=== PATIENT | female | born 1940 | race Caucasian/White ===

== ENCOUNTER 2020-01-17 14:39 | Inpatient (IN) ==
[2020-01-17] MEDS ORDERED: ASPIRIN PO ONE (14:52)
[2020-01-17] MEDS ORDERED: DUONEB (A & A) INH ONE (15:07)
[2020-01-17 15:32] LABS: BASO# 0.12 X1000 (0.0-0.2); BASO% 0.9 % (0.0-0.8); EOS# 0.14 X1000 (0.0-0.7); HEMATOCRIT 42.5 % (37.0-47.0); HEMOGLOBIN 13.9 g/dL (12.0-16.0); IMM GRAN# 0.05 X1000 (0.0-0.04); IMM GRAN% 0.4 % (0.0-0.5); MCH 33.2 PG (27-31); MCHC 32.7 g/dL (33-37); MCV 101.4 FL (81-99); MONO# 2.01 X1000 (0.11-0.59); MONO% 14.5 % (1.7-9.3); MPV 9.9 FL (7.4-10.4); NEUT# 9.71 X1000 (1.4-6.5); NEUT% 70.2 % (42.2-75.2); PLT 317 X1000 (130-400); RBC 4.19 XMIL (4.2-5.4); RDW 12.7 % (11.5-14.5); WBC 13.83 X1000 (4.8-10.8)
[2020-01-17 15:43] LABS: INR 0.83; PROTIME 11.8 Seconds (11.0-16.0)
[2020-01-17 15:44] LABS: PTT 28.7 Seconds (22.3-41.8)
[2020-01-17 15:47] LABS: URINE SOURCE CLEAN CATCH
[2020-01-17 15:48] LABS: AGAP 12; ALBUMIN 4.3 g/dL (3.5-5.0); ALKALINE PHOSPHATASE 62 U/L (32-104); BUN 19 mg/dL (8-22); CALCIUM 9.2 mg/dL (8.8-10.2); CHLORIDE 91 mmol/L (98-107); COSMO 267; CREATININE 0.8 mg/dL (0.5-0.9); ESTIMATED GFR > 60; GLUCOSE 106 mg/dL (70-104); GOT 23 U/L (10-30); GPT 13 U/L (10-36); POTASSIUM 4.9 mmol/L (3.5-5.1); SODIUM 132 mmol/L (136-145); TCO2 29 mmol/L (25-35); TOTAL PROTEIN 7.5 g/dL (6.3-8.3)
[2020-01-17 15:51] LABS: BILIRUBIN URINE NEGATIVE (NEGATIVE); BLOOD URINE SMALL (NEGATIVE); COLOR YELLOW; GLUCOSE URINE NEGATIVE (NEGATIVE); KETONE URINE NEGATIVE (NEGATIVE); LEUKOCYTES URINE NEGATIVE (NEGATIVE); NITRITE URINE NEGATIVE (NEGATIVE); PH URINE 6.5; PROTEIN URINE TRACE mg/dL (NEGATIVE); SP GRAVITY URINE 1.018; TURBIDITY URINE CLEAR (CLEAR); UR EPITHELIAL CELLS <10 /HPF (<10); URINE BACTERIA NEGATIVE /HPF; URINE WBC <10 /HPF (<10); UROBILINOGEN URINE NORMAL (NORMAL)
[2020-01-17 15:56] LABS: CK PROFILE 215 U/L (24-173)
--- NOTE | 2020-01-17 16:04 | Diag Imaging Result Doc PS360 ---
EXAM: CHEST-2 VIEWS HISTORY: SOB TECHNIQUE: PA and Lateral chest x-ray COMPARISON: 12/05/2017 FINDINGS: The cardiomediastinal silhouette is within normal limits. There is mild vascular congestion. Interstitial markings are mildly prominent. There is stable mild blunting of the left lateral costophrenic angles. IMPRESSION: Mild vascular congestion and interstitial prominence compared with prior study. Electronically signed by Sabina Oakes 01/17/2020 4:02 PM
[2020-01-17 16:19] LABS: CK INDEX 3.1 (0.0-2.5); CK-MB 6.75 ng/mL (0.0-5.0)
[2020-01-17] MEDS ORDERED: LASIX IV ONE (19:21)
--- NOTE | 2020-01-17 19:23 | PROVIDER DOCUMENTATION ---
This chart was entered by Viviana Jaime Scribe, acting as scribe for Jayce Dale MD. HPI-Respiratory General - General Source: patient, family - History of Present Illness-Resp Quality of Pain: reports: none Severity in ED: reports: moderate Onset/Duration: reports: 3 days ago Timing: reports: still present, constant, getting worse Context: reports: recent URI Cough Quality/Degree: reports: moderate, productive cough Episode Frequency: frequent episodes Current Respiratory Medication Therapy: Initiated see nurses note Modifying Factors: improves with: albuterol nebulizer, oxygen, sitting upright. worse with: exertion, coughing Associated Symptoms: reports: cough, shortness of breath, wheezing. denies: chest pain/soreness, headache Similar Symptoms Previously?: Yes Recently seen or treated by another doctor?: Yes (md on wednesday) <Jayce Dale - Last Filed: 01/17/20 19:22> <Jake Coreas - Last Filed: 01/17/20 21:50> - General Chief Complaint: Shortness of Breath Stated Complaint: FLU SX Time Seen by Provider: 01/17/20 14:59 Allergies/Adverse Reactions: Patient Allergies Allergy/AdvReac Type Severity Reaction Status Date / Time No Known Allergies Allergy Verified 10/07/14 10:43 Home Medications: Home Medication List Medication Instructions Recorded Confirmed Last Taken Type Calcium 1,200 mg PO DAILY 10/07/14 01/17/20 10/23/16 07:00 History 1200 MG Celecoxib [Celebrex] 200 mg PO BID 10/07/14 01/17/20 10/23/16 07:00 History 200 MG Cholecalciferol (Vitamin D3) 1,000 unit PO DAILY 10/07/14 01/17/20 10/23/16 07:00 History [Vitamin D] 1000 UNIT Folic Acid 1 mg PO DAILY 10/07/14 01/17/20 10/23/16 07:00 History 1 MG Methotrexate 40 mg PO DIRECTED 10/07/14 01/17/20 10/20/16 07:00 History YES Amoxicillin/Pot Clavulanate 875 mg PO BID 01/17/20 01/17/20 01/17/20 History [Augmentin] Duloxetine HCl 30 mg PO BID 01/17/20 01/17/20 Unknown History Fluticasone 50 Mcg Nasal [place] 1 spray ORDERED DAILY 01/17/20 01/17/20 Unknown History [Flonase] Primidone 50 mg PO DAILY 01/17/20 01/17/20 Unknown History Propranolol [Inderal] 10 mg PO BID 01/17/20 01/17/20 Unknown History - History of Present Illness-Resp Nature of Presenting Problem: 79 yowf presents to the ed with c/o sob, wheezing, productive cough and low O2 sat. pt has seen MD and recently dx with URI. pt sts sx have worsened since onset 3 days prior. pt is nontoxic in appearance (Jayce Dale) Review of Systems - Adult - REVIEW OF SYSTEMS - ADULT Constitutional: denies: chills, fever Eyes: reports: no symptoms reported Ears, Nose, Mouth & Throat: reports: no symptoms reported Cardiovascular: denies: chest pain, palpitations Respiratory: reports: see HPI, cough, shortness of breath, wheezing Gastrointestinal: denies: abdominal pain, diarrhea, nausea, vomiting Genitourinary: reports: no symptoms reported Musculoskeletal: denies: back pain, neck pain Integumentary: reports: no symptoms reported Neurological: reports: no symptoms reported Psychiatric: reports: no symptoms reported Endocrine: reports: no symptoms reported Hematologic/Lymphatic: reports: no symptoms reported Allergic/Immunologic: reports: no symptoms reported All Other Systems: Reviewed and Negative <Jayce Dale - Last Filed: 01/17/20 19:22> Past History - Adult - PAST MEDICAL HISTORY-ADULT Review of Records: reports: Old Records Reviewed, Nursing Assessment Review, Medications Reviewed, Social history reviewed & non-contributory. Major Childhood Illnesses: reports: denies history Cardiovascular: reports: denies history Respiratory: reports: COPD Gastrointestinal: reports: GERD Obstetrical/Gynecological: reports: denies history Genitourinary: reports: denies history Musculoskeletal: reports: arthritis, chronic pain Neurological: reports: denies history Endocrine/Immune: reports: denies history Other Conditions: reports: denies history - IMMUNIZATION STATUS Childhood Immunizations: See Nurse Assessment Flu Vaccine: See Nurse Assessment - FAMILY HISTORY Family History: reviewed, not pertinent <Jayce Dale - Last Filed: 01/17/20 19:22> Physical Exam-General - PHYSICAL EXAM-ADULT Initial Vital Signs Reviewed: Yes - CONSTITUTIONAL General Appearance: alert - EYES Eyes: PERRL/EOMI, pink conjunctivae - HEAD, EARS, NOSE, MOUTH & THROAT HENMT: moist mucous membranes, normal ENT inspection - NECK Neck: non-tender, full range of motion, supple, normal inspection - RESPIRATORY Respiratory: chest non-tender, respiratory distress, wheezing - CARDIOVASCULAR Cardiovascular: normal peripheral pulses, regular rate, rhythm - CHEST (BREASTS) Chest/Breast: deferred - GASTROINTESTINAL (ABDOMEN) Abdominal Exam: normal bowel sounds, non tender, soft - GENITOURINARY Female Genitalia/Pelvic Exam: deferred Rectal Exam: deferred Hemoccult Exam: deferred (=-) - LYMPHATIC Lymphatic: no adenopathy - MUSCULOSKELETAL Back Exam: normal inspection, no CVA tenderness, no vertebral tenderness Extremity: normal range of motion, non-tender, normal inspection - SKIN Integumentary: normal color, normal turgor, warm/dry - NEUROLOGIC Neurologic: grossly normal - PSYCHIATRIC Psych/Mental Status: normal mood/affect, normal thought content, normal thought process, oriented x 3 <Jayce Dale - Last Filed: 01/17/20 19:22> - HEART Score HEART Score: History: Slightly Suspicious HEART Score: ECG: Non-Specific Repolarization Disturbance/LBBB/PM HEART Score: Age: > or = 65 Years HEART Score: Risk Factors for Atherosclerotic Disease: 1 or 2 Risk Factors HEART Score: Troponin: < or = Normal Limit Total HEART Score:: 4 <Jake Coreas - Last Filed: 01/17/20 21:50> Progress - PLAN OF CARE/RESULTS Result Diagrams: 01/17/20 15:14 01/17/20 15:14 - XRAY 1 XRAY: Bilateral XRAY Study: Chest Impression: See EMR Report (EXAM: CHEST-2 VIEWS HISTORY: SOB TECHNIQUE: PA and Lateral chest x-ray COMPARISON: 12/05/2017 FINDINGS: The cardi omediastinal silhouette is within normal limits. There is mild vascular congestion. Interstitial markings are mildly prominent. There is stable mild blunting of the left lateral costophrenic angles. IMPRESSION: Mild vascular congestion and interstitial prominence compared with prior study. Electronically signed by Sabina Oakes 01/17/2020 4:02 PM 01/17/20 1602 Interpreting Physician: Sabina Oakes MD Dictated Date/Time: 01/17/20 1600 cc: Jayce Dale MD; Dio Dueñas MD) - CHANGE OF SHIFT REPORT (ED Provider) 1 Report Given and Care Transferred to:: Dr Coreas Time of Transfer: 19:00 Items Pending: CT/MRI Results <Jayce Dale - Last Filed: 01/17/20 19:22> - PLAN OF CARE/RESULTS Result Diagrams: 01/17/20 15:14 01/17/20 15:14 - REASSESSMENT Reassessment #1 Time Reassessed: 21:16 Status: unchanged (PUL ANGIOGRAM : NO PTE, POSSIBLE LLL INFILTRATE. PT WILL DESAT BELOW 90% WHEN AMBULATES TO BR W/O 02, BNP SL ELEV. MILD LEUKOCYTOSIS.) - CONSULTS/PCP/HOSPITALIST Notification #1 *Consult/PCP/Hospitalist*: DR VILLEGAS Time Discussed: 21:50 Consult Disposition: Admit <Jake Coreas - Last Filed: 01/17/20 21:50> - PLAN OF CARE/RESULTS Progress/Plan/Lab Results: Vital Signs - 8 hr 01/17/20 14:45 01/17/20 15:35 01/17/20 18:17 Temperature 98.0 F Pulse Rate 80 86 90 Respiratory Rate 20 18 20 Blood Pressure 192/68 165/74 O2 Sat by Pulse Oximetry 90 L 98 97 01/17/20 19:42 01/17/20 19:43 Temperature Pulse Rate 90 84 Respiratory Rate 19 22 Blood Pressure 199/84 199/84 O2 Sat by Pulse Oximetry 99 100 Laboratory Results - last 24 hr 01/17/20 01/17/20 01/17/20 15:14 15:14 15:14 WBC RBC Hgb Hct MCV MCH MCHC RDW Std Deviation Plt Count MPV Immature Gran % (Auto) Neut % (Auto) Lymph % (Auto) Ogle % (Auto) Eos % (Auto) Baso % (Auto) Immature Gran # (Auto) Neut # (Auto) Lymph # (Auto) Ogle # (Auto) Eos # (Auto) Baso # (Auto) PT INR PTT (Actin FS) D-Dimer, Quantitative Sodium 132 L Potassium 4.9 Chloride 91 L Carbon Dioxide 29 Anion Gap 12 BUN 19 Creatinine 0.8 Estimated GFR/1.73 m2 > 60 BUN/Creatinine Ratio 24 Glucose 106 H Calculated Osmolality 267 Calcium 9.2 Total Bilirubin 0.20 AST 23 ALT 13 Alkaline Phosphatase 62 Creatine Kinase 215 H Creatine Kinase Index 3.1 H CK-MB (CK-2) 6.75 H Troponin T High Sens Xyn-[id number]-Bdvilgxyopq Pept 1152 H Total Protein 7.5 Albumin 4.3 Globulin 3.0 Albumin/Globulin Ratio 1.0 Plasma Lactate 1.0 Urine Source Urine Color Urine Turbidity Urine pH Ur Specific [place] Urine Protein Ur Glucose (Stick) Ur Ketones (Stick) Urine Blood Urine Nitrite Urine Bilirubin Urobilinogen Dipstick Urine Leukocytes Urine WBC (Auto) Urine RBC (Auto) U Epithel Cells (Auto) Urine Bacteria (Auto) 01/17/20 01/17/20 01/17/20 15:14 15:14 15:14 WBC 13.83 H RBC 4.19 L Hgb 13.9 Hct 42.5 MCV 101.4 H MCH 33.2 H MCHC 32.7 L RDW Std Deviation 12.7 Plt Count 317 MPV 9.9 Immature Gran % (Auto) 0.4 Neut % (Auto) 70.2 Lymph % (Auto) 13.0 L Ogle % (Auto) 14.5 H Eos % (Auto) 1.0 Baso % (Auto) 0.9 H Immature Gran # (Auto) 0.05 H Neut # (Auto) 9.71 H Lymph # (Auto) 1.80 Ogle # (Auto) 2.01 H Eos # (Auto) 0.14 Baso # (Auto) 0.12 PT 11.8 INR 0.83 PTT (Actin FS) 28.7 D-Dimer, Quantitative Sodium Potassium Chloride Carbon Dioxide Anion Gap BUN Creatinine Estimated GFR/1.73 m2 BUN/Creatinine Ratio Glucose Calculated Osmolality Calcium Total Bilirubin AST ALT Alkaline Phosphatase Creatine Kinase Creatine Kinase Index CK-MB (CK-2) Troponin T High Sens 16 Mwu-R-Yqzsrweqhus Pept Total Protein Albumin Globulin Albumin/Globulin Ratio Plasma Lactate Urine Source Urine Color Urine Turbidity Urine pH Ur Specific [place] Urine Protein Ur Glucose (Stick) Ur Ketones (Stick) Urine Blood Urine Nitrite Urine Bilirubin Urobilinogen Dipstick Urine Leukocytes Urine WBC (Auto) Urine RBC (Auto) U Epithel Cells (Auto) Urine Bacteria (Auto) 01/17/20 01/17/20 01/17/20 15:14 15:37 18:37 WBC RBC Hgb Hct MCV MCH MCHC RDW Std Deviation Plt Count MPV Immature Gran % (Auto) Neut % (Auto) Lymph % (Auto) Ogle % (Auto) Eos % (Auto) Baso % (Auto) Immature Gran # (Auto) Neut # (Auto) Lymph # (Auto) Ogle # (Auto) Eos # (Auto) Baso # (Auto) PT INR PTT (Actin FS) D-Dimer, Quantitative 1.15 H Sodium Potassium Chloride Carbon Dioxide Anion Gap BUN Creatinine Estimated GFR/1.73 m2 BUN/Creatinine Ratio Glucose Calculated Osmolality Calcium Total Bilirubin AST ALT Alkaline Phosphatase Creatine Kinase Creatine Kinase Index CK-MB (CK-2) Troponin T High Sens Usv-[id number]-Phgoacdmdcx Pept Total Protein Albumin Globulin Albumin/Globulin Ratio Plasma Lactate 1.1 Urine Source CLEAN CATCH Urine Color YELLOW Urine Turbidity CLEAR Urine pH 6.5 Ur Specific [place] 1.018 Urine Protein TRACE A Ur Glucose (Stick) NEGATIVE Ur Ketones (Stick) NEGATIVE Urine Blood SMALL A Urine Nitrite NEGATIVE Urine Bilirubin NEGATIVE Urobilinogen Dipstick NORMAL Urine Leukocytes NEGATIVE Urine WBC (Auto) <10 Urine RBC (Auto) 10-20 A U Epithel Cells (Auto) <10 Urine Bacteria (Auto) NEGATIVE Orders Category Date Time Status Cardiac Monitoring DIRECTED Care 01/17/20 14:53 Active NEWS Score 2-4:Order NEWS Lactate Series NOW Care 01/17/20 14:51 Active Oxygen Therapy- ED Nursing DIRECTED Care 01/17/20 14:53 Active Saline Loc NOW Care 01/17/20 14:53 Active CHEST-2 VIEWS [RAD] Stat Exams 01/17/20 14:[address] ANGIOGRM PULMONARY ARTERIES [CT] Stat Exams 01/17/20 18:32 Completed CBC WITH ELECTRONIC DIFF [HEME] Stat Lab 01/17/20 15:14 Completed CK PROFILE [SP CHEM] Stat Lab 01/17/20 15:14 Completed COMPREHENSIVE METABOLIC PANEL [CHEM] Stat Lab 01/17/20 15:14 Completed D-DIMER [COAG] Stat Lab 01/17/20 15:14 Completed LACTATE, PLASMA [CHEM] Lab 01/17/20 18:37 Completed LACTATE, PLASMA [CHEM] Lab 01/17/20 20:45 Received LACTATE, PLASMA [CHEM] Q3H Lab 01/17/20 15:14 Completed PRO B-NATRIURETIC PEPTIDE Stat Lab 01/17/20 15:14 Completed PROTIME WITH INR [COAG] Stat Lab 01/17/20 15:14 Completed PTT [COAG] Stat Lab 01/17/20 15:14 Completed TROPONIN T HIGH SENSITIVITY Stat Lab 01/17/20 15:14 Completed UA [URINALYSIS W/POSS RFLX CULT] [URINALYSIS] Stat Lab 01/17/20 15:37 Completed Albuterol 2.5MG/Ipratrop 0.5MG [Duoneb (A & A)] Med 01/17/20 15:07 Discontinued 3 ml INH NOW ONE Aspirin Med 01/17/20 14:52 Discontinued 325 mg PO NOW ONE Furosemide [Lasix] Med 01/17/20 19:21 Discontinued 40 mg IV NOW ONE Rocephin 1 gm/Ns IV Now Med 01/17/20 21:15 Ordered CefTRIAXONE [Rocephin] 1 gm 0.9% Sodium Chloride Inj [Ns] 50 ml IV NOW Aerosol Treatments Routine Oth 01/17/20 15:07 Active Aerosol Treatments Stat Oth 01/17/20 15:07 Active CP/SOB/Palp >45 yrs of Age Stat Oth 01/17/20 14:52 Ordered EKG [EKG] Stat Ther 01/17/20 14:53 Ordered Departure - Critical Care Note This patient required my direct & personal management of CC.: No <Jayce Dale - Last Filed: 01/17/20 19:22> - Departure Date of Disposition Decision: 01/17/20 Time of Disposition Decision: 21:20 Certified Medical Emergency: Emergent - Critical Care Note This patient required my direct & personal management of CC.: No <Jake Coreas - Last Filed: 01/17/20 21:50> - Departure DIAGNOSIS: Obstructive chronic bronchitis with exacerbation, Pneumonia, organism unspecified, Hypoxemia Pulmonary edema Qualifiers: Chronicity: acute Qualified Code(s): J81.0 - Acute pulmonary edema Hematuria Qualifiers: Hematuria type: unspecified type Qualified Code(s): R31.9 - Hematuria, unspecified Disposition: ADMITTED INPATIENT 09 Condition: Stable Referrals and Follow-Ups: Dio Dueñas MD [Primary Care Provider] - Discharge Education: Steps to Quit Smoking, [id number]-[id number] Attestation - Physician/ PRANAY Attestation Patient care was provided by Advanced Practice Provider:: No The physician spent face to face time with patient:: Yes Advanced Practice Provider documentation review:: Supervising physician onsite and consulted in the evaluation and care of this patient. The physician did have a face to face encounter with the patient. <Jayce Dale - Last Filed: 01/17/20 19:22> - Physician/ PRANAY Attestation The physician spent face to face time with patient:: Yes Advanced Practice Provider documentation review:: Supervising physician onsite and consulted in the evaluation and care of this patient. The physician did have a face to face encounter with the patient. <Jake Coreas - Last Filed: 01/17/20 21:50> This chart was documented by the indicated scribe, (Viviana Jaime Scribe) and accurately reflects the services I performed and decisions made by me, Jayce Dale MD, as attested by the provider's signature.
--- NOTE | 2020-01-17 20:01 | Diag Imaging Result Doc PS360 ---
EXAM: CT ANGIOGRM PULMONARY ARTERIES INDICATION: difficulty breathing, left arm swollen TECHNIQUE: This exam was performed using automated exposure control, adjustment of mA or kV according to patient size, and/or use of iterative reconstruction technique. Thin section axial images and 3-D MIPS were obtained. COMPARISON: 10/23/2016 FINDINGS: There is respiratory motion artifact at the lung bases, which may slightly decreased sensitivity. There is no evidence of pulmonary embolism. There is extensive aortic atherosclerotic calcification. There is no evidence of aortic aneurysm. The heart appears mildly prominent but stable. There are calcified mediastinal and hilar lymph nodes indicating prior granulomatous disease. There are several calcified granulomata bilaterally. There is a potential mild focal infiltrate at the medial left lung base. However, this could be artifactual or at least accentuated by respiratory motion artifact. There is no pleural fluid collection and no pneumothorax. Limited views of the upper abdomen reveals minimal splenic tissue in the left upper quadrant, stable. There is no evidence of acute osseous abnormality. IMPRESSION: 1.Questionable mild infiltrate at the medial left lung base that could be artifactual or at least accentuated by motion artifact. 2.No evidence of pulmonary embolism. 3.Other incidental/nonacute findings detailed above. Electronically signed by Carlos Enrique Berry 01/17/2020 7:58 PM
[2020-01-17] MEDS ORDERED: ROCEPHIN 1 GM in NS 50 ML IV ONE (21:15)
[2020-01-17] MEDS ORDERED: ZITHROMAX PO ONE (21:51)
[2020-01-18] MEDS ORDERED: TYLENOL PO PRN (00:48)
[2020-01-18] MEDS ORDERED: ZOFRAN ODT PO PRN (00:48)
[2020-01-18] MEDS: DUONEB (A & A) INH SCH ×7 (01:22→23:03)
--- NOTE | 2020-01-18 04:40 | EKG Report ---
Test Performed on : 01/17/2020 6:38:43 PM Test Reason : SOB Blood Pressure : / mmHG Vent. Rate : 067 BPM Atrial Rate : 067 BPM P-R Int : 150 ms QRS Dur : 070 ms QT Int : 388 ms P-R-T Axes : 042 -11 027 degrees QTc Int : 409 ms Normal sinus rhythm. Possible Left atrial enlargement Borderline ECG When compared with ECG of 05-DEC-2017 10:25, Vent. rate has decreased BY 35 BPM Criteria for Inferior infarct are no longer present Nonspecific T wave abnormality no longer evident in Anterior leads Unconfirmed Result
[2020-01-18] MEDS ORDERED: ROBITUSSIN-DM PO PRN (07:12)
[2020-01-18] MEDS: SOLU-MEDROL IV SCH ×3 (09:32→22:12)
[2020-01-18] MEDS: LASIX IV SCH ×3 (09:32→22:18)
[2020-01-18] MEDS: FOLIC ACID PO SCH (09:32)
[2020-01-18] MEDS: ZITHROMAX PO SCH (09:32)
[2020-01-18] MEDS: CYMBALTA PO SCH ×2 (09:32→22:13)
[2020-01-18] MEDS: INDERAL PO SCH ×2 (09:33→22:13)
[2020-01-18] MEDS: MYSOLINE PO SCH (10:46)
[2020-01-18] MEDS: FLONASE NAS SCH (10:46)
--- NOTE | 2020-01-18 17:03 | Vascular Study Report ---
EXAM: Venous U/S Bilateral Legs - 01/18/2020 HISTORY: elevated d-dimer, CP, sob TECHNIQUE: Bilateral lower extremity Doppler venous ultrasound COMPARISON: None. FINDINGS: The deep veins of bilateral lower extremities demonstrate flow and compressibility. There are no filling defects identified. IMPRESSION: No evidence of deep venous thrombosis in either lower extremity. Electronically signed by Clint Roach 01/18/2020 5:01 PM
[2020-01-18 17:08] LABS: INFLUENZA A NEGATIVE (NEGATIVE); INFLUENZA B NEGATIVE (NEGATIVE)
--- NOTE | 2020-01-18 18:13 | ECHO REPORT ---
ORDER DATE: 01/18/2020 INDICATION: Shortness of breath, pneumonia. M-MODE MEASUREMENTS: Left ventricle end diastole: 4.5. Left ventricle end systole: 2.0. Posterior wall: 1.0. Interventricular septum: 1.0. Left atrium: 2.8. Aortic diameter: 2.8. SUMMARY OF 2-DIMENSIONAL IMAGIN. Left ventricular function is hyperdynamic with an ejection fraction of 70% to 75%. There is no wall motion abnormality noted. 2. The mitral valve looks normal. Color flow mapping unremarkable. 3. Pulse wave Doppler of mitral inflow shows mild reversal of the E/A ratio. The ratio is 0.8. 4. Tissue Doppler of septal and lateral mitral annulus averages 7 cm. There is no diastolic dysfunction. 5. The left atrium does not appear to be dilated. 6. The aortic valve looks normal. Color flow mapping unremarkable. There is a mild degree of aortic regurgitation. 7. The tricuspid valve shows no significant regurgitation. The inferior vena cava is not dilated. Pulmonary pressure is normal. 8. The pulmonic valve was suboptimally visualized. SUMMARY: This study shows: 1. Normal left ventricular systolic function/hyperdynamic with an ejection fraction of 70% to 75%. 2. Mild degree of aortic regurgitation. 3. No diastolic dysfunction. 4. Normal pulmonary pressure. 5. No pericardial effusion, no mass, and no thrombus. Clinical correlation recommended. cc: MD Chris Shook MD
--- NOTE | 2020-01-18 18:39 | HISTORY AND PHYSICAL ---
CHIEF COMPLAINT: Low oxygen saturations, shortness of breath. HISTORY OF PRESENT ILLNESS: This is a 79-year-old female with a history of COPD who presented to the emergency room complaining of 3 days of shortness of breath, cough, wheezing. She states she was seen by her primary care physician at the beginning of symptoms. He diagnosed her with an upper respiratory infection. Symptoms progressed and just prior to coming to the emergency room, she felt very weak, very short of breath. Checked her O2 saturation and it was 70% on room air. Therefore, she presented to the emergency room. On arrival to the emergency room, she did have a O2 saturation of 90%. Chest x-ray revealed vascular congestion. She was found to have an elevated D-dimer. CTA pulmonary arteries was performed which revealed a left-sided pneumonia with no evidence of pulmonary embolism. She was given antibiotic coverage of Rocephin and azithromycin and is being admitted for further evaluation and treatment. PAST MEDICAL HISTORY: 1. COPD. 2. Rheumatoid arthritis. 3. Atrial fibrillation. 4. Thyroid disease. 5. Hypertension. PAST SURGICAL HISTORY: Appendectomy, cholecystectomy, cataract removal, hysterectomy, tonsillectomy, cardiac ablation. SOCIAL HISTORY: She smokes a pack a day. She denies alcohol or illicit drug use. ALLERGIES: No known drug allergies. HOME MEDICATIONS: A list will be obtained by the nursing staff and once verified will review and restart as appropriate. FAMILY HISTORY: Mother had CAD, status post VT. Grandparents have hypertension. REVIEW OF SYSTEMS: Discussed with patient with pertinent positives stated in the HPI. She denied any syncope or dizziness, any palpitations, any chills, night sweats, any nausea, vomiting, diarrhea, constipation, any black or bloody vomitus or stools. PHYSICAL EXAMINATION: GENERAL: This is a 79-year-old female who is sitting up in the bed in no distress. VITAL SIGNS: Blood pressure is 150/58 with a heart rate of 90, respirations are 20 to 22, temperature is 97.9 degrees oral with O2 saturations running 95 to 100 percent on 2 L nasal cannula. EYES: Pupils equal, round, react to light. EOMs are intact. Sclerae are anicteric. HEENT: Head is normocephalic, atraumatic. Mucous membranes are moist. NECK: Supple with trachea midline. CARDIOVASCULAR: Regular rate and rhythm S1 and S2 appreciated. She has no lower extremity edema. No murmurs. Peripheral pulses are palpable x4 extremities. PULMONARY: She has got scattered wheezes throughout. Chest rises and falls symmetric with respiration. Chest wall is nontender to palpation. GASTROINTESTINAL: Abdomen is soft, nontender, nondistended. Bowel sounds in all 4 quadrants. NEUROLOGIC: She is alert and oriented x3. SKIN: Warm and dry. LABORATORY DATA/IMAGIN. WBC is 13.8 with hemoglobin 13.9, hematocrit 42.5, and platelets 317,000. INR 0.83 with a D- dimer of 1.15. Sodium 132, potassium 4.9, BUN 19, creatinine 0.8, glucose of 106. ProBNP is 1152 troponin is 16. Urinalysis is essentially negative, she does have 10 to 20 microscopic red blood cells. Blood cultures are pending. 2. Chest x-ray revealed mild vascular congestion and interstitial prominence. 3. CTA pulmonary arteries, questionable infiltrate in the mid medial left lung base that could be artifactual. No evidence of pulmonary embolism. Blood cultures are pending. ASSESSMENT AND PLAN: 1. Acute hypoxemic respiratory failure. 2. Chronic obstructive pulmonary disease with acute exacerbation. 3. Left-sided pneumonia. 4. Pulmonary edema. 5. Leukocytosis. 6. Elevated D-dimer with a CTA pulmonary negative for pulmonary embolus. 7. Microscopic hematuria. PLAN: 1. The patient has been admitted to the medical-surgical floor and placed on telemetry which will continue. 2. Continue supplemental oxygen. 3. DuoNeb. 4. Bronchodilators and steroids. 5. Antibiotics of Rocephin and azithromycin and further antibiotics will be culture driven. 6. Lasix 20 mg IV b.i.d. with strict intake and output. 7. Incentive spirometer q.4 hours. 8. Identify her home medications and continue these as appropriate. 9. Get a flu swab. 10. Check a CBC, CMP, magnesium in the morning. 11. Bilateral lower extremity Doppler. 12. Further treatments pending hospital course. Dictated by ADAM Rodriguez for Chris Quintero MD cc: ADAM Rodriguez MD
[2020-01-18] MEDS ORDERED: NS 500 ML ONE (20:19)
[2020-01-18] MEDS: ROCEPHIN 1 GM in NS 50 ML IV SCH (22:12)
--- NOTE | 2020-01-19 01:46 | HISTORY AND PHYSICAL ---
ADDENDUM: Patient seen and examined by myself. Full note dictated and discussed with nurse practitioner. Patient presented to the hospital with increased work of breathing, cough, congestion, increased shortness of breath. She does continue to smoke. We are going to admit her to the hospital, treat her for left lower lobe pneumonia and she does have hyponatremia. We are going to place her on steroids, oxygen and breathing treatments for her COPD exacerbation and we will follow. cc: Chris Quintero MD
[2020-01-19] MEDS: DUONEB (A & A) INH SCH ×6 (03:09→22:56)
[2020-01-19 04:36] LABS: HEMATOCRIT 41.4 % (37.0-47.0); HEMOGLOBIN 13.6 g/dL (12.0-16.0); MCH 32.4 PG (27-31); MCHC 32.9 g/dL (33-37); MCV 98.6 FL (81-99); MPV 10.1 FL (7.4-10.4); RBC 4.2 XMIL (4.2-5.4); RDW 12.6 % (11.5-14.5); WBC 12.02 X1000 (4.8-10.8)
[2020-01-19 04:44] LABS: AGAP 15; ALBUMIN 3.8 g/dL (3.5-5.0); ALKALINE PHOSPHATASE 57 U/L (32-104); BUN 26 mg/dL (8-22); CHLORIDE 87 mmol/L (98-107); COSMO 271; CREATININE 0.8 mg/dL (0.5-0.9); ESTIMATED GFR > 60; GLUCOSE 154 mg/dL (70-104); GOT 18 U/L (10-30); GPT 14 U/L (10-36); MAGNESIUM 1.6 mg/dL (1.5-2.7); POTASSIUM 4.1 mmol/L (3.5-5.1); SODIUM 131 mmol/L (136-145); TCO2 29 mmol/L (25-35); TOTAL PROTEIN 7.3 g/dL (6.3-8.3)
[2020-01-19] MEDS: FLONASE NAS SCH (09:05)
[2020-01-19] MEDS: MYSOLINE PO SCH (09:06)
[2020-01-19] MEDS: FOLIC ACID PO SCH (09:06)
[2020-01-19] MEDS: CYMBALTA PO SCH ×2 (09:06→21:56)
[2020-01-19] MEDS: INDERAL PO SCH ×2 (09:06→21:57)
[2020-01-19] MEDS: ZITHROMAX PO SCH (09:06)
[2020-01-19] MEDS: SOLU-MEDROL IV SCH ×2 (09:06→17:19)
[2020-01-19] MEDS: LASIX IV SCH ×2 (10:55→21:56)
[2020-01-19] MEDS: ROCEPHIN 1 GM in NS 50 ML IV SCH (21:56)
--- NOTE | 2020-01-20 00:28 | PROGRESS NOTE ---
DATE: 01/19/2020 SUBJECTIVE: Patient notes that she is feeling a lot better today. Less cough, less congestion and less shortness of breath. She is able to ambulate to the restroom although gets fatigued on her return trip. PHYSICAL EXAMINATION: Vital Signs: Temperature 98 degrees, pulse 81, respiratory rate 18, BP 135/56. General: Patient is awake. She is in minimal respiratory distress which is much improvement from admission. HEENT: Normocephalic. Neck: Supple. Cardiovascular: Regular rate. Chest: Improved air movement although still decreased. Positive wheezing although improved. Abdomen: Soft, nondistended. Extremities: Moves all extremities. Neurologic: No changes. ASSESSMENT: 1. Left-sided pneumonia. 2. Chronic obstructive pulmonary with exacerbation. 3. Acute hypoxic respiratory failure. 4. Leukocytosis. 5. Hyponatremia. 6. Elevated D-dimer with negative CTA. PLAN: We are going to continue patient in the hospital. Continue Lasix, azithromycin, Rocephin, continue Solu-Medrol although we will decrease the dose and we will follow. cc: Chris Quintero MD
[2020-01-20] MEDS: SOLU-MEDROL IV SCH (02:29)
[2020-01-20] MEDS: DUONEB (A & A) INH SCH ×2 (03:34→07:23)
[2020-01-20] MEDS ORDERED: DUONEB (A & A) INH PRN (08:44)
[2020-01-20] MEDS: CYMBALTA PO SCH ×2 (09:44→21:47)
[2020-01-20] MEDS: FOLIC ACID PO SCH (09:44)
[2020-01-20] MEDS: ZITHROMAX PO SCH (09:44)
[2020-01-20] MEDS: MYSOLINE PO SCH (09:44)
[2020-01-20] MEDS: FLONASE NAS SCH (09:44)
[2020-01-20] MEDS: INDERAL PO SCH ×2 (09:44→21:47)
--- NOTE | 2020-01-20 12:35 | PROGRESS NOTE ---
DATE: 01/20/2020 SUBJECTIVE: The patient overall notes that she is feeling better. She is breathing easier. Denies any current chest pains. Still feeling jittery, anxious and nervous at times. PHYSICAL EXAM: Vital signs: Temperature 97.8, pulse 73, respiratory rate 18, BP 140/96, saturating 96% on 2 L. General: Patient is awake, pleasant, no distress, although she is lying flatly in the bed. HEENT: Normocephalic. Neck: Supple. Cardiovascular: Regular rate. Chest: Clear. No crackles currently. No wheezing, although just finished a breathing treatment. She is still jittery from a breathing treatment. Abdomen: Soft, nondistended. Extremities: Moves all extremities. ASSESSMENT: 1. Chronic obstructive pulmonary disease with exacerbation. 2. Acute hypoxic respiratory failure. 3. Pulmonary edema, resolved. 4. Left-sided pneumonia improved. PLAN: We will continue patient in the hospital. Continue breathing treatments, although decreased to q.6. Continue Solu-Medrol, although decreased to 40 q.12. Continue antibiotics, and will follow. Hopefully home over the next 1 or 2 days. cc: Chris Quintero MD
[2020-01-20] MEDS: ROCEPHIN 1 GM in NS 50 ML IV SCH (21:49)
[2020-01-21] MEDS: SOLU-MEDROL IV SCH ×2 (04:34→05:22)
[2020-01-21 07:48] VITALS: BP 166/64
[2020-01-21] MEDS: FLONASE NAS SCH (09:04)
[2020-01-21] MEDS: MYSOLINE PO SCH (09:05)
[2020-01-21] MEDS: ZITHROMAX PO SCH (09:05)
[2020-01-21] MEDS: FOLIC ACID PO SCH (09:05)
[2020-01-21] MEDS: INDERAL PO SCH (09:05)
[2020-01-21] MEDS: CYMBALTA PO SCH ×2 (09:05→09:07)
--- NOTE | 2020-01-21 16:41 | DISCHARGE SUMMARY ---
ADMISSION DATE: 01/17/2020 DISCHARGE DATE: 01/21/2020 DIAGNOSES: 1. Acute hypoxemic respiratory failure, resolved. 2. Chronic obstructive pulmonary disease, acute exacerbation, resolved. 3. Pneumonia. 4. Elevated D-dimer with a CTA pulmonary negative for pulmonary embolus and bilateral lower extremity Doppler negative for deep vein thrombosis. 5. Pulmonary edema, resolved. 6. Microscopic hematuria. DIAGNOSTICS: 1. Chest x-ray revealed mild vascular congestion and interstitial prominence. 2. Pulmonary arteriogram: Questionable mild infiltrate at the medial left lung base. No evidence of pulmonary embolism. 3. Echocardiogram: Normal left ventricular systolic function, hyperdynamic with an ejection fraction of 70 to 75%. No diastolic dysfunction. Normal pulmonary pressure. 4. Bilateral lower extremity Doppler: No evidence of DVT in either lower extremity. MICROBIOLOGY: 1. Urine culture revealed no growth. 2. Blood cultures x2 revealed no growth after 48 hours. HOSPITAL COURSE: Ms. Real presented to the emergency room complaining of shortness of breath, a cough, and wheezing for 3 days. She reports a room air SAO2 of 70%. Therefore, she came to the emergency room. Room air saturation of 90% on arrival to the emergency room. She received Rocephin and azithromycin. Blood cultures revealed no growth. She was diuresed negative a liter. States that she is breathing much better. She did have microscopic hematuria. She denies any gross hematuria. This can be rechecked and followed by her primary care physician. DISCHARGE VITAL SIGNS: Blood pressure is 166/64, with a heart rate of 67, respirations 18, temperature 98.2 degrees, with room air saturations 93 to 94%. Cardiovascular: Regular rate and rhythm. S1 and S2 appreciated. No lower extremity edema. Calves are nontender bilaterally with peripheral pulses palpable x4 extremities. Pulmonary: Breath sounds are clear with no increased work of breathing noted. Chest rises and falls symmetrically with respiration. Chest wall is nontender to palpation. Gastrointestinal: Abdomen is soft, nontender, nondistended with bowel sounds in all 4 quadrants. Neurologic: She is alert and oriented x3. DISCHARGE MEDICATIONS: Celebrex 200 mg p.o. b.i.d., duloxetine 30 mg p.o. b.i.d., Flonase 50 mcg each nostril daily, folic acid 1 mg p.o. daily, Inderal 10 mg p.o. b.i.d., methotrexate 2.5 tablets every 7 days, primidone 50 mg daily, Prolia as directed, steroid Dosepak take as directed, Omnicef 300 mg p.o. b.i.d. x5 days, Symbicort 160/4.5 inhaler 2 puffs b.i.d., azithromycin 250 mg p.o. daily x3 days FOLLOW UP: Dr. Dio Dueñas, her primary care physician. She needs to call Wednesday to make an appointment within the next week. At that time she will need to have her urine rechecked for microscopic hematuria. DISPOSITION: She is being discharged home in stable condition with family members. DISCHARGE INSTRUCTIONS: She was instructed to call to be seen sooner or return to the emergency room for syncope, dizziness, chest pain, palpitations, increasing shortness of breath, temperature greater than 101, any nausea, vomiting, diarrhea, constipation, any black or bloody vomitus or stools, any hematuria, dysuria, frequency, urgency, or for any questions or concerns that she may have. TIME SPENT: This is a greater than 30 minute discharge. Dictated by ADAM Rodriguez for Chris Quintero MD cc: ADAM Rodriguez MD [facility]
--- NOTE | 2020-01-21 20:55 | DISCHARGE SUMMARY ---
ADMISSION DATE: 01/17/2020 DISCHARGE DATE: 01/21/2020 ADDENDUM: Patient seen and examined by myself. Full note dictated and discussed with nurse practitioner. On discharge, patient is awake. She is in no distress. She notes that she is feeling better. She has been off oxygen all night. She is breathing better. She is still wheezing, but notes this is her baseline. She does have breathing treatments at home. We will discharge with antibiotics, steroids and breathing treatments. She will follow up with her primary care in 1 week. cc: Chris Quintero MD
== END 2020-01-21 12:37 | disposition home or self-care (01) | DRG 193 ==
LOC: P.ED 14:39 → P.MEDSURG 14:40
PROVIDERS: ATTEND Family Medicine